=== PATIENT | male | born 1955 | race Caucasian/White ===

== ENCOUNTER 2016-08-12 13:39 | Inpatient (IN) | payer OTHER ==
[~2016-08-12] VITALS: Ht 177.8 cm; Wt 106.6 kg
--- NOTE | 2016-08-12 13:39 | NUR ---
PT BIBA TO BED 6.
[2016-08-12 13:42] VITALS: BP 209/115
--- NOTE | 2016-08-12 13:45 | NUR ---
61M BIBA FROM [facility] C/O VOMITING BLOOD W/ POSSIBLE GI BLEED; PT DENIES ANY MEDICAL HX AT THIS TIME; PER [facility], PT FELL X 4 DAYS AGO, UNABLE TO MOVE S/P FALL; PT UNKNOWN IF LOC AT THE TIME OF FALL; PT A&OX3, PERRLA W/ GARBLED SPEECH; PT C/O VOMITING W/ DIARRHEA; ABDOMEN SOFT, NON-TENDER, ROUND; ACTIVE BOWEL SOUNDS X 4 QUADRANTS; PT NOTED W/ ANASARCA W/ +2 PITTING EDEMA AT THIS TIME; PT NOTED W/ REDNESS TO GROIN AREA, OPEN SKIN TEAR TO LEFT ELBOW, SLIGHT BLEEDING TO SITE AT THIS TIME, DISCOLORATION TO BL KNEES; REDNESS TO RT ARM, BL LEGS; PT C/O SHARP PAIN, NON-RADIATING, 4/10 X 1 MONTH TO LEFT KNEE S/P FALL. PT PLACED ON MONITOR, RESTING IN BED W/ HOB ELEVATED AND IN LOWEST POSITION; POSITIONED FOR COMFORT; ER MD MADE AWARE OF STATUS. WILL CONTINUE TO MONITOR.
[2016-08-12] MEDS ORDERED: NACL 0.9% 1,000 ML IV SCH (13:48)
[2016-08-12] MEDS ORDERED: PANTOPRAZOLE 40 MG INJ VIAL IVP ONE (13:50)
[2016-08-12] MEDS ORDERED: ONDANSETRON 4 MG/2 ML VIAL IVP ONE (13:50)
[2016-08-12] MEDS ORDERED: OCTREOTIDE ACETATE 100 MCG/ML VIAL IV SCH ×2 (13:50→15:20)
--- NOTE | 2016-08-12 14:00 | NUR ---
XRAY AT BEDSIDE.
[2016-08-12 15:10] LABS: HEMATOCRIT 31.4 % (36-52); HEMOGLOBIN 10.3 g/dL (12.0-18.0); MEAN CORPUSCULAR HEMOGLOBIN 29 pg (27-31); MEAN CORPUSCULAR HGB CONC 33 g/dL (33-37); MEAN CORPUSCULAR VOLUME 87 fL (80-94); PLATELET COUNT (AUTO) 332 K/uL (140-450); RED BLOOD CELL COUNT(AUTO) 3.59 MIL/uL (4.20-6.10); RED CELL DISTRIBUTION WIDTH 20.9 % (11.6-13.7)
[2016-08-12] MEDS: OCTREOTIDE ACETATE 1.25 MG in NACL 0.9% 250 ML IV ONE ×2 (15:17→15:19)
[2016-08-12 15:27] LABS: ANION GAP 10.1 (8-16); CALCIUM 7.1 mg/dL (8.5-10.1); CARBON DIOXIDE 26.2 mmol/L (21-32); CREATININE 0.9 mg/dL (0.6-1.3); POTASSIUM 3.3 mmol/L (3.5-5.1)
[2016-08-12 15:28] LABS: NEUTROPHILS % (MANUAL) 82 (43-65)
[2016-08-12 15:29] LABS: ANISOCYTOSIS 1+; BAND % (MANUAL) 10 % (0-8); LYMPHOCYTES % (MANUAL) 4 % (20-46); MONOCYTES % (MANUAL) 4 % (5-12); PLATELET ESTIMATE ADEQUATE
[2016-08-12 15:31] LABS: INR 1.3 (0.8-1.2); PARTIAL THROMBOPLASTIN TIME 30.3 secs (22-35.6); PROTHROMBIN TIME 12.7 secs (10.8-13.4)
[2016-08-12 15:33] LABS: ALBUMIN 1.3 g/dL (3.4-5.0); TOTAL BILIRUBIN 0.9 mg/dL (0.0-1.0)
[2016-08-12 15:48] LABS: CREATINE KINASE MB 0.7 ng/mL (0-3.6)
[2016-08-12] MEDS ORDERED: MORPHINE SULFATE 2 MG/ML SYR IVP PRN (16:00)
[2016-08-12] MEDS ORDERED: LORazepam 1 MG TAB PO PRN (16:00)
[2016-08-12] MEDS ORDERED: ONDANSETRON 4 MG/2 ML VIAL IVP PRN (16:00)
--- NOTE | 2016-08-12 16:14 | NUR ---
US AT BEDSIDE.
[2016-08-12] MEDS ORDERED: cefTRIAXone 1,000 MG VIAL ONE (16:15)
--- NOTE | 2016-08-12 16:19 | NUR ---
CALLED [facility] TO GIVE REPORT TO RN; AZUL CHRISTIAN WILL CALL BACK D/C PT AT THIS TIME.
--- NOTE | 2016-08-12 17:02 | NUR ---
REPORT GIVEN TO JAY AT THIS TIME; PT TO BE TRANSFERRED TO FLOOR AFTER PHOTOS TAKEN.
--- NOTE | 2016-08-12 17:37 | NUR ---
Patient will be admitted to care of DR. SALAZAR. Admited to TELEMETRY. Will go to room 111B. Belongings list completed. Report to AZUL THOMPSON.
[2016-08-12 17:55] VITALS: BP 115/73
--- NOTE | 2016-08-12 17:55 | NUR ---
RECEIVED PATIENT FROM ER. PATIENT AWAKE, ALERT AND ORIENTED. PATIENT ON ROOM AIR. NO SOB NOTED. NO C/O OF PAIN AT THIS TIME. GENERALIZED EDEMA NOTED. 1+ PITTING EDEMA NOTED TO BUE AND BLE. PATIENT PRESENTS WITH GENERALIZED WEAKNESS. PATIENT STATES THAT HE USES A CANE TO AMBULATE AT HOME. IV LINE NOTED TO THE RIGHT HAND AND LEFT CHEST. PATIENT PLACED ON TELE MONITORING. BED LOWERED WITH CALL LIGHT WITHIN REACH. WILL CONTINUE TO MONITOR
--- NOTE | 2016-08-12 18:00 | NUR ---
PATIENT HAD A BM. STOOL BLACK AND LOOSE. PATIENT GIVEN PERINEAL CARE. REDNESS TO THE GROIN AND DISCOLORATION TO BLE NOTED
--- NOTE | 2016-08-12 19:16 | NUR ---
PATIENT REPORT GIVEN AT BEDSIDE. PATIENT ENDORSED IN STABLE CONDITION
--- NOTE | 2016-08-12 19:30 | NUR ---
RECEIVED FROM AM RN IN BED SUPINE POSITION AWAKE AND ALERT. ABLE TO VERBALIZE NEEDS. IVF SITE TO LEFT CHEST AND RIGHT HAND INTACT. GOOD BLOOD RETURN. REMINDED NPO . DX. OF GI BLEED. RE-ORIENTED TO CALL LIGHT USE AND RAPID RESPONSE ALARM. PT. BED ALARM ON RT GENERALIZED WEAKNESS. ANASARCA/WEEPING NOTED. DENIES PAIN AT THIS TIME. TELEMETRY MONITORING.
[2016-08-12 20:16] VITALS: BP 105/50
--- NOTE | 2016-08-12 20:28 | NUR ---
PT. CLEANED UP BY FRAME PULLEY MORTISING MACHINE OPERATOR AND WITH SOFT STOOL WITH BLOOD NOTED. DX. GI BLEED. KEPT CLEAN AND WARM.
[2016-08-12] MEDS: PANTOPRAZOLE 80 MG in NACL 0.9% 100 ML IVP SCH (20:38)
--- NOTE | 2016-08-12 22:00 | NUR ---
PT. STILL AWAKE AT THIS TIME. REQUESTING FOR FOOD. REMINDED THAT HE IS NPO PER MD. DX. GI BLEED. NO SOB. TELEMETRY MONITORING. CALL LIGHT WITH IN REACH.
--- NOTE | 2016-08-13 | NUR ---
PT. REQUESTING FOR FOOD. INFORMED HIM HE IS NPO. PT. DX. GI BLEED. CLEANED BY CNAS RT WITH BM. NOTED WITH SPECK OF BLOOD IN IT. NO SOB. TELEMETRY MONITORING.
[2016-08-13] MEDS ORDERED: MILD SOAP AND WATER TP PRN (00:05)
[2016-08-13] MEDS ORDERED: HYDRAGUARD CREAM TP PRN (00:05)
[2016-08-13 00:45] VITALS: BP 121/79
[2016-08-13] MEDS: HYDRAGUARD CREAM TP SCH ×2 (01:00→13:00)
[2016-08-13] MEDS: MILD SOAP AND WATER TP SCH ×2 (01:09→13:00)
--- NOTE | 2016-08-13 02:00 | NUR ---
SLEEPING WELL. NO SOB. NO RESTLESSNESS NOTED. CALL LIGHT WITH IN REACH. ABLE TO USE CALL LIGHT FOR HELP. ON TELEMETRY MONITORING.
--- NOTE | 2016-08-13 04:00 | NUR ---
SLEEPING. TURNED BY CNAS. PILLOW SUPPORT TO PRESSURE AREAS. TELEMETRY MONITORING. BOTH IVF SITES INTACT AND WITH GOOD BLOOD RETURN.
[2016-08-13 04:06] VITALS: BP 115/78
--- NOTE | 2016-08-13 06:21 | NUR ---
PT. SLEEPING. NO SOB. NO RESTLESSNESS NOTED. TELEMETRY MONITORING. TURNED Q 2H. TOTAL CARE AT THIS TIME RT GENERALIZED WEAKNESS.
--- NOTE | 2016-08-13 07:29 | NUR ---
PT. HAD 3 SOFT BM THIS SHIFT. ENDORSED TO THE NEXT RN FOR CONTINUITY OF CARE. NO SOB. NO RESTLESSNESS NOTED. TELEMETRY MONITORING. TOTAL CARE FOR NOW RT WEAKNESS.
--- NOTE | 2016-08-13 07:30 | NUR ---
PT AWAKE AND ALERT, NO SIGNS OF ACUTE DISTRESS, BREATHING EVEN AND UNLABORED BILATERALLY. ABDOMEN SOFT NON-TENDER WITH BOWEL SOUNDS ACTIVE IN ALL 4 QUADRANTS, BEDREST, IV PATENT WITH NO REDNESS, SKIN INTACT WITH PITTING WEEPING EDEMA TO BILATERAL UPPER AND LOWER EXTREMITIES AND REDNESS TO COCCYX AND PERINEAL AREA, RE-ORIENTED PT TO UNIT AND HOSPITAL PT VERBALIZED UNDERSTANDING. BED IN LOW POSITION WITH BILATERAL HALF SIDE RAILS UP, CALL LIGHT WITHIN REACH.
[2016-08-13 08:00] VITALS: BP 114/72
[2016-08-13] MEDS: PANTOPRAZOLE 80 MG in NACL 0.9% 100 ML IVP SCH (08:07)
[2016-08-13] MEDS: MULTIVITAMIN 1 TAB PO SCH (09:00)
[2016-08-13] MEDS: THIAMINE 100 MG TAB PO SCH (09:00)
[2016-08-13] MEDS: FOLIC ACID 1 MG TAB PO SCH (09:00)
--- NOTE | 2016-08-13 09:06 | NUR ---
PATIENT HAS BEEN SCREENED AND CATEGORIZED MODERATE NUTRITION RISK. PATIENT WILL BE SEEN WITHIN 3-5 DAYS OF ADMISSION. 08/15/16-08/17/[address]
[2016-08-13] MEDS ORDERED: ALBUMIN HUMAN 25% 50 ML IV SCH (10:14)
--- NOTE | 2016-08-13 10:25 | NUR ---
LAB CALLED, UNSUCCESSFUL WITH BLOOD DRAW FOR BLOOD CULTURES, WOULD LIKE TO KNOW IF DR SALAZAR STILL WANTS NEW BLOOD CULTURES DRAWN. SPOKE WITH DR SALAZAR, CONFIRMED YES HE WANTS BLOOD CULTURES DRAWN.
--- NOTE | 2016-08-13 10:30 | NUR ---
SPOKE WITH DR SALAZAR REGARDING NEED FOR CENTRAL LINE OR PICC LINE DUT TO INABILITY TO INSERT IV AND DRAW BLOOD AND MULTIPLE IV MEDICATION AND LAB ORDERS. PER DR SALAZAR OKAY TO INSERT PICC LINE.
--- NOTE | 2016-08-13 10:45 | NUR ---
PATIENT EDUCATED REGARDING NEED FOR PICC LINE, CONSENT FORM SIGNED AND PICC NURSE CALLED. PICC NURSE WILL CALL ME BACK WITH ESTIMATED TIME OF ARRIVAL.
--- NOTE | 2016-08-13 10:53 | NUR ---
CALLED LAB AND INFORMED DR SALAZAR DOES WANT BLOOD CULTURES DRAWN.
--- NOTE | 2016-08-13 11:15 | NUR ---
FAXED INITIAL REVIEW TO [facility] [phone] PHONE AUGUST [phone]
--- NOTE | 2016-08-13 11:32 | NUR ---
RECEIVED CALL FROM KEMAL PICC LINE NURSE, WILL BE HERE AT 1300 TO INSERT PICC.
[2016-08-13 11:47] VITALS: BP 132/74
--- NOTE | 2016-08-13 12:11 | NUR ---
CANNOT GET A NEW IV LINE IN PATIENT DUE TO SWELLING, UNABLE TO ADMINISTER ALBUMIN AT THIS TIME. PICC NURSE COMING IN AROUND 1300., AWARE.
[2016-08-13 12:14] LABS: HEMOGLOBIN 9.4 g/dL (12.0-18.0); MEAN CORPUSCULAR HEMOGLOBIN 28 pg (27-31); MEAN CORPUSCULAR HGB CONC 32 g/dL (33-37); MEAN CORPUSCULAR VOLUME 88 fL (80-94); PLATELET COUNT (AUTO) 265 K/uL (140-450); RED BLOOD CELL COUNT(AUTO) 3.32 MIL/uL (4.20-6.10); RED CELL DISTRIBUTION WIDTH 21.4 % (11.6-13.7); WHITE BLOOD COUNT (AUTO) 11.9 K/uL (4.8-10.8)
[2016-08-13 12:34] LABS: BAND % (MANUAL) 13 % (0-8); LYMPHOCYTES % (MANUAL) 7 % (20-46); MONOCYTES % (MANUAL) 4 % (5-12); NEUTROPHILS % (MANUAL) 76 (43-65)
[2016-08-13 12:35] LABS: ANISOCYTOSIS 1+; OVALOCYTES 1+; POIKILOCYTOSIS 1+
[2016-08-13] MEDS ORDERED: POTASSIUM CHLORIDE 20% 40 MEQ/15 ML UDC GT SCH (13:00)
--- NOTE | 2016-08-13 13:00 | NUR ---
WAS SEEN BY DR LANDAVERDE, NEW ORDERS RECEIVED WILL CARRY OUT.
[2016-08-13 13:17] LABS: ALBUMIN 1.2 g/dL (3.4-5.0); MAGNESIUM 1.4 mg/dL (1.8-2.4); TOTAL BILIRUBIN 0.7 mg/dL (0.0-1.0); TOTAL PROTEIN, SERUM 5.6 g/dL (6.4-8.2)
[2016-08-13 13:23] LABS: ANION GAP 13.7 (8-16); CALCIUM 7.5 mg/dL (8.5-10.1); CARBON DIOXIDE 24.6 mmol/L (21-32); POTASSIUM 4.3 mmol/L (3.5-5.1)
[2016-08-13 13:24] LABS: CREATININE 1.1 mg/dL (0.6-1.3)
--- NOTE | 2016-08-13 13:25 | NUR ---
PICC NURSE ARRIVED, BEGAN PICC INSERTION.
--- NOTE | 2016-08-13 13:50 | NUR ---
PICC NURSE FINISHED INSERTION, WILL GET CHEST XRAY TO CONFIRM PLACEMENT.
[2016-08-13] MEDS ORDERED: FUROSEMIDE 20 MG/2 ML VIAL IVP SCH (14:00)
--- NOTE | 2016-08-13 14:09 | NUR ---
SPOKE WITH DR. SALAZAR, REPORTED XRAY RESULT FOR PICC PLACEMENT. RECEIVED ORDER, OK TO USE PICC LINE. NOTED AND CARRIED OUT.
[2016-08-13 16:00] VITALS: BP 107/73
--- NOTE | 2016-08-13 17:36 | NUR ---
PAGED DR CAREY REGARDING DIET ORDER DUE TO EGD PATIENT IS TO HAVE TOMORROW WITH DR LANDAVERDE.
--- NOTE | 2016-08-13 17:40 | NUR ---
PER DR CAREY, NPO AFTER MIDNIGHT FOR EGD TOMORROW, 08/14/16. WILL CARRY OUT.
--- NOTE | 2016-08-13 18:41 | NUR ---
RECEIVED NEW ORDER FOR SCD'S FROM DR LANDAVERDE, CALLED HOMICIDE SQUAD SERGEANT TO ORDER AND CARRY OUT.
--- NOTE | 2016-08-13 19:17 | NUR ---
PT AWAKE AND ALERT, NO SIGNS OF ACUTE DISTRESS. GAVE REPORT TO AZUL WILKINS, POLYSOMNOGRAPH TECH NURSE FOR CONTINUITY OF CARE.
--- NOTE | 2016-08-13 19:26 | NUR ---
RECEIVED FROM AM RN IN BED SUPINE POSITION AWAKE AND ALERT. ABLE TO VERBALIZE NEEDS. IVF SITE TO LEFT SUBCLAVIAN INTACT. GOOD BLOOD RETURN. REMINDED NPO AT MIDNIGHT RT PROCEDURE/EGD TOMORROW. CONSENT SIGNED."OK" . DX. OF GI BLEED. RE-ORIENTED TO CALL LIGHT USE AND RAPID RESPONSE ALARM. PT. BED ALARM ON RT GENERALIZED WEAKNESS. ANASARCA/WEEPING NOTED. DENIES PAIN AT THIS TIME. TELEMETRY MONITORING. NEW PICC LINE INSERTED TO LEFT UPPER CHEST WITH DOUBLE LUMEN. FLUSHED WITH NS AT THIS TIME. PATENT. DENIES PAIN AT THIS TIME.
[2016-08-13 19:55] VITALS: BP 129/84
[2016-08-13 20:00] LABS: HEMATOCRIT 28.4 % (36-52); HEMOGLOBIN 9.1 g/dL (12.0-18.0)
[2016-08-13] MEDS: LACTULOSE 20 GM/30 ML UDC PO SCH (20:04)
[2016-08-13] MEDS: MAGNESIUM OXIDE 400 MG TAB PO SCH (20:05)
[2016-08-13] MEDS: SPIRONOLACTONE 50 MG TAB PO SCH (20:05)
--- NOTE | 2016-08-13 20:14 | NUR ---
PT. ABLE TO TOLERATE ALL P.O. MEDICATIONS. DENIES PAIN AT THIS TIME. NO SOB. REMINDED AGAIN THAT HE IS NPO AT MIDNIGHT ORDERED BY MD LANDAVERDE/GI SPECIALIST. "OK" TELEMETRY MONITORING. CALL LIGHT WITH IN REACH. BLOOD SPECIMEN FOR H AND H TAKEN VIA PICC LINE. TOLERATED WELL. FLUSHED EACH PORT WITH NS 10 ML.
[2016-08-13] MEDS ORDERED: AMITRIPTYLINE 10 MG TAB PO SCH (21:00)
[2016-08-14] VITALS: BP 114/74
[2016-08-14] MEDS: HYDRAGUARD CREAM TP SCH ×2 (01:31→12:26)
[2016-08-14] MEDS: MILD SOAP AND WATER TP SCH ×2 (01:31→12:26)
--- NOTE | 2016-08-14 01:31 | NUR ---
PT. SLEEPING AT THIS TIME. NO RESTLESSNESS NOTED. TELEMETRY MONITORING.
[2016-08-14 04:00] VITALS: BP 123/56
--- NOTE | 2016-08-14 04:52 | NUR ---
PT. BEEN TURNED Q 2H. KEPT DRY AND COMFORTABLE. TELEMETRY MONITORING. PT. ABLE TO USE CALL LIGHT FOR HELP. NPO STATUS SINCE MIDNIGHT ORDERED BY MD LANDAVERDE.
[2016-08-14 06:53] LABS: HEMOGLOBIN 8.8 g/dL (12.0-18.0)
[2016-08-14 07:02] LABS: ALBUMIN 1.4 g/dL (3.4-5.0); ANION GAP 9.7 (8-16); CALCIUM 7.3 mg/dL (8.5-10.1); CARBON DIOXIDE 26.9 mmol/L (21-32); CREATININE 1.1 mg/dL (0.6-1.3); POTASSIUM 3.6 mmol/L (3.5-5.1); TOTAL BILIRUBIN 0.5 mg/dL (0.0-1.0); TOTAL PROTEIN, SERUM 5.6 g/dL (6.4-8.2)
[2016-08-14 07:06] LABS: HEMATOCRIT 26.5 % (36-52); MEAN CORPUSCULAR HEMOGLOBIN 29 pg (27-31); MEAN CORPUSCULAR HGB CONC 33 g/dL (33-37); MEAN CORPUSCULAR VOLUME 88 fL (80-94); PLATELET COUNT (AUTO) 278 K/uL (140-450); RED BLOOD CELL COUNT(AUTO) 3.02 MIL/uL (4.20-6.10); RED CELL DISTRIBUTION WIDTH 20.6 % (11.6-13.7); WHITE BLOOD COUNT (AUTO) 7.9 K/uL (4.8-10.8)
--- NOTE | 2016-08-14 07:29 | NUR ---
ENDORSED TO THE NEXT RN SLEEPING BUT WAKES UP EASILY WHEN CALLED BY NAME. ENDORSED TO THE NEXT RN FOR CONTINUITY OF CARE. AWAKE AND ALERT. NO COMPLAINTS DONE. TELEMETRY MONITORING.
--- NOTE | 2016-08-14 07:30 | NUR ---
RECEIVED REPORT FROM FORMS BUILDER NURSE AT BEDSIDE. UPDATED THE BOARD. PT IS SLEEPING. PT HAS WEEPING EDEMA ON L ARM, CHANGED THE TOWEL, AND BL LE PITTING EDEMA. PT HAS INCONTINENT DERMATITIS ON SACRAL AREA. PT HAS PICC 2 PORTS ON L UPPER ARM. PT HAS SCDS ON. VS WNL. PT IS SLEEPING. CALL LIGHT WITHIN REACH. WILL CONTINUE TO MONITOR.
[2016-08-14 07:35] LABS: ANISOCYTOSIS 1+; BASOPHILS % (MANUAL) 1 % (0-2); EOSINOPHILS % (MANUAL) 3 % (0-4); LYMPHOCYTES % (MANUAL) 15 % (20-46); MONOCYTES % (MANUAL) 9 % (5-12); NEUTROPHILS % (MANUAL) 72 (43-65); PLATELET ESTIMATE ADEQUATE
[2016-08-14 08:00] VITALS: BP 119/76
[2016-08-14] MEDS ORDERED: THIAMINE 100 MG TAB PO SCH (09:00)
--- NOTE | 2016-08-14 09:00 | NUR ---
PT VOIDED AND HAD BM IN BED. CLEANED AND CHANGED PT. PT TOLERATED WELL. WILL CONTINUE TO MONITOR. Addendum: 08/14/16 at 1735 by Rocio Morrissey RN BM WAS BLOODY.
[2016-08-14] MEDS ORDERED: diphenhydrAMINE 50 MG/ML VIAL ONE (09:12)
[2016-08-14] MEDS ORDERED: fentaNYL 0.05 MG/ML VIAL ONE (09:12)
[2016-08-14] MEDS ORDERED: MIDAZOLAM 2 MG/2 ML VIAL ONE (09:12)
[2016-08-14] MEDS: LACTULOSE 20 GM/30 ML UDC PO SCH ×2 (09:13→21:01)
[2016-08-14] MEDS: MAGNESIUM OXIDE 400 MG TAB PO SCH ×2 (09:14→21:02)
[2016-08-14] MEDS: SPIRONOLACTONE 50 MG TAB PO SCH ×2 (09:14→21:02)
[2016-08-14] MEDS: FOLIC ACID 1 MG TAB PO SCH (09:14)
[2016-08-14] MEDS: PANTOPRAZOLE 40 MG INJ VIAL IVP SCH (09:14)
[2016-08-14] MEDS: THIAMINE 100 MG TAB PO SCH (09:14)
[2016-08-14] MEDS: MULTIVITAMIN 1 TAB PO SCH (09:14)
[2016-08-14] MEDS: FUROSEMIDE 20 MG/2 ML VIAL IVP SCH (09:15)
--- NOTE | 2016-08-14 09:20 | NUR ---
OR NURSES HERE TO TRANSPORT PT TO OR FOR EGD. PT IN STABLE CONDITION.
[2016-08-14] MEDS ORDERED: Z-GUARD PASTE TP ONE (09:25)
--- NOTE | 2016-08-14 10:28 | NUR ---
PT CAME BACK TO UNIT WITH 2 OR NURSES. OR NURSE REPORTED PROCEDURE WENT WELL, PT VS WNL, ESOPHAGITIS IS THE DIAGNOSIS. CALL LIGHT WITHIN REACH. WILL CONTINUE TO MONITOR.
[2016-08-14] MEDS ORDERED: MIDAZOLAM 2 MG/2 ML VIAL IV ONE (11:05)
[2016-08-14] MEDS ORDERED: fentaNYL 0.05 MG/ML VIAL IVP ONE (11:05)
[2016-08-14] MEDS ORDERED: diphenhydrAMINE 50 MG/ML VIAL IVP ONE (11:05)
[2016-08-14 12:00] VITALS: BP 130/82
[2016-08-14] MEDS: FERROUS SULFATE 325 MG TABEC PO SCH ×2 (12:19→16:18)
--- NOTE | 2016-08-14 12:20 | NUR ---
PT IS SITTING UP IN BED AND EATING LUNCH. APPETITE GOOD.
--- NOTE | 2016-08-14 14:38 | NUR ---
PT IS SLEEPING IN BED. NO DISTRESS NOTED. CALL LIGHT WITHIN REACH. WILL CONTINUE TO MONITOR.
[2016-08-14 16:00] VITALS: BP 140/77
--- NOTE | 2016-08-14 16:00 | NUR ---
PT HAD A LOOSE BM. CLEANED AND CHANGED PT, APPLIED Z-GUARD. PT TOLERATED WELL. CALL LIGHT WITHIN REACH. WILL CONTINUE TO MONITOR. Addendum: 08/14/16 at 1735 by Rocio Morrissey RN NO VISIBLE BLOOD IN BM.
[2016-08-14] MEDS: Z-GUARD PASTE TP PRN (16:16)
--- NOTE | 2016-08-14 18:30 | NUR ---
PT HAD A LOOSE BM WITH BLOODY MUCUS. PAGED DR. Katrin LANDAVERDE.
--- NOTE | 2016-08-14 18:50 | NUR ---
PAGED DR. Katrin LANDAVERDE REGARDING PT'S BLOODY MUCUS IN STOOL.
--- NOTE | 2016-08-14 19:29 | NUR ---
GAVE REPORT TO CHARGE NURSE OF LINE CREWMAN. PT IN STABLE CONDITION.
[2016-08-14 20:00] VITALS: BP 150/90
--- NOTE | 2016-08-14 20:10 | NUR ---
RECEIVED FROM CHARGE NURSE REPORT SLEEPING . NO SOB. NO RESTLESSNESS NOTED. CALL LIGHT WITH IN REACH.WAKES UP EASILY WHEN TOUCHED. ABLE TO VERBALIZE NEEDS WELL. ASSISTED WITH ACTIVITIES AT THIS TIME RT AFFLICTION. PICC LINE TO LEFT UPPER ARM INTACT AND NO INFILTRATION. TELEMETRY MONITORING. CARE PLANS FOR THE SHIFT DISCUSSED WITH HIM.
[2016-08-14] MEDS: AMITRIPTYLINE 10 MG TAB PO SCH (21:06)
--- NOTE | 2016-08-14 21:36 | NUR ---
SLEEPING AT THIS TIME. CALL LIGHT WITH IN REACH.
--- NOTE | 2016-08-15 00:13 | NUR ---
SLEEPING AT THIS TIME. CALL LIGHT WITH IN REACH. NO RESTLESSNESS. TURNED TO SIDES Q 2H BY CNAS. NO COMPLAINTS DONE.
[2016-08-15 00:54] VITALS: BP 140/86
[2016-08-15] MEDS: MILD SOAP AND WATER TP SCH ×2 (01:00→13:29)
[2016-08-15] MEDS: HYDRAGUARD CREAM TP SCH ×2 (01:00→13:28)
--- NOTE | 2016-08-15 03:47 | NUR ---
PT. CHECKED. SLEEPING. NO RESTLESSNESS. CALL LIGHT AT BEDSIDE. TELEMETRY MONITORING. PT. TURNED TO SIDES Q 2H.
[2016-08-15 05:07] VITALS: BP 138/78
[2016-08-15 06:53] LABS: HEMATOCRIT 27.4 % (36-52); MEAN CORPUSCULAR HEMOGLOBIN 29 pg (27-31); MEAN CORPUSCULAR HGB CONC 33 g/dL (33-37); MEAN CORPUSCULAR VOLUME 89 fL (80-94); PLATELET COUNT (AUTO) 236 K/uL (140-450); RED BLOOD CELL COUNT(AUTO) 3.09 MIL/uL (4.20-6.10); RED CELL DISTRIBUTION WIDTH 20.9 % (11.6-13.7); WHITE BLOOD COUNT (AUTO) 7.4 K/uL (4.8-10.8)
--- NOTE | 2016-08-15 07:00 | NUR ---
ENDORSED TO THE NEXT RN FOR CONTINUITY OF CARE. A/O X 4. VERBALIZES WELL. NO SOB. NEEDS MET. ASSISTED WITH ADLS.
[2016-08-15 07:11] LABS: ANION GAP 8.6 (8-16); CALCIUM 7.1 mg/dL (8.5-10.1); CARBON DIOXIDE 28.7 mmol/L (21-32); CREATININE 0.9 mg/dL (0.6-1.3); POTASSIUM 3.3 mmol/L (3.5-5.1)
--- NOTE | 2016-08-15 07:18 | NUR ---
RECEIVED PT REPORT FROM PAVING BLOCK CUTTER NURSE AT BEDSIDE. INTRODUCED OURSELVES AND UPDATED THE BOARD. PT IS ALERT AWAKE AND ORIENTED. VS WNL. BL EDEMA IN UPPER AND LOWER EXTREMITIES. SCDS ON PT. PT HAS PICC LINE ON L UPPER ARM, SITE INTACT. REPOSITIONED AND PULLED PT UP IN BED. PT IS EATING BREAKFAST. TOLERATING WELL. CALL LIGHT WITHIN REACH. WILL CONTINUE TO MONITOR.
[2016-08-15 08:00] VITALS: BP 132/57
[2016-08-15 08:14] LABS: ANISOCYTOSIS 1+; BAND % (MANUAL) 2 % (0-8); BASOPHILS % (MANUAL) 0 % (0-2); EOSINOPHILS % (MANUAL) 4 % (0-4); LYMPHOCYTES % (MANUAL) 20 % (20-46); MONOCYTES % (MANUAL) 10 % (5-12); NEUTROPHILS % (MANUAL) 64 (43-65); PLATELET ESTIMATE ADEQUATE
--- NOTE | 2016-08-15 08:15 | NUR ---
PT HAD A LOOSE BLOODY BM. CLEANED AND CHANGED PT. REPOSITIONED PT. PT TOLERATED WELL. CALL LIGHT WITHIN REACH. WILL CONTINUE TO MONITOR.
[2016-08-15] MEDS: FERROUS SULFATE 325 MG TABEC PO SCH ×3 (08:52→17:11)
[2016-08-15] MEDS: MULTIVITAMIN 1 TAB PO SCH (08:53)
[2016-08-15] MEDS: PANTOPRAZOLE 40 MG INJ VIAL IVP SCH (08:53)
[2016-08-15] MEDS: FOLIC ACID 1 MG TAB PO SCH (08:53)
[2016-08-15] MEDS: FUROSEMIDE 20 MG/2 ML VIAL IVP SCH (08:53)
[2016-08-15] MEDS: LACTULOSE 20 GM/30 ML UDC PO SCH (08:53)
[2016-08-15] MEDS: MAGNESIUM OXIDE 400 MG TAB PO SCH ×2 (08:54→21:00)
[2016-08-15] MEDS: SPIRONOLACTONE 50 MG TAB PO SCH ×2 (08:54→20:59)
[2016-08-15] MEDS: THIAMINE 100 MG TAB PO SCH (08:54)
--- NOTE | 2016-08-15 09:10 | NUR ---
PT HAD A LOOSE BM. CLEANED AND CHANGED PT. TOLERATED WELL. WILL CONTINUE TO MONITOR.
--- NOTE | 2016-08-15 09:15 | NUR ---
DR. SALAZAR EXAMINED PT AND ORDERED K-DUR FOR PT'S LOW K LEVEL.
[2016-08-15] MEDS ORDERED: POTASSIUM CHLORIDE 10 MEQ TABER PO SCH (10:00)
--- NOTE | 2016-08-15 10:10 | NUR ---
HELPED PT USE URINAL IN BED. PT TOLERATED WELL. WILL CONTINUE TO MONITOR.
[2016-08-15] MEDS: Z-GUARD PASTE TP PRN (10:40)
--- NOTE | 2016-08-15 10:45 | NUR ---
PAGED DR. Katrin LANDAVERDE REGARDING PT'S BLOODY STOOL.
--- NOTE | 2016-08-15 11:45 | NUR ---
DR. Katrin LANDAVERDE CALLED AND ORDERED TO DISCONTINUE LACTULOSE AND HE WILL PERFORM COLONOSCOPY ON TUESDAY IF PT IS STILL IN HOSPITAL, IF NOT, HE WILL ORDER COLONOSCOPY OUTPATIENT.
[2016-08-15 12:00] VITALS: BP 132/57
--- NOTE | 2016-08-15 12:00 | NUR ---
PT USED URINAL AND ALSO VOIDED A SMALL AMOUNT IN BED. CLEANED AND CHANGED PT. PT TOLERATED WELL. CALL LIGHT WITHIN REACH. WILL CONTINUE TO MONITOR.
--- NOTE | 2016-08-15 14:00 | NUR ---
SPOKE TO DR. SALAZAR REGARDING DR. Katrin LANDAVERDE'S PLAN FOR PT. DR. SALAZAR AWARE.
[2016-08-15] MEDS ORDERED: ELA10 PO (14:10)
[2016-08-15] MEDS ORDERED: SPIR50TA PO (14:10)
[2016-08-15] MEDS ORDERED: FERR-18 PO (14:10)
[2016-08-15] MEDS ORDERED: THIA-8 PO (14:10)
[2016-08-15] MEDS ORDERED: FURO-570 PO (14:10)
[2016-08-15] MEDS ORDERED: FOLI1TAB90 PO (14:10)
[2016-08-15] MEDS ORDERED: LACT10SO11 PO (14:10)
[2016-08-15] MEDS ORDERED: ONDA2SOL45 IVP (14:10)
[2016-08-15] MEDS ORDERED: MAG400 PO (14:10)
[2016-08-15] MEDS ORDERED: MULT-405 PO (14:10)
[2016-08-15] MEDS ORDERED: PANT40EC PO (14:11)
[2016-08-15] MEDS ORDERED: CIPR500P4 PO (14:12)
[2016-08-15 16:00] VITALS: BP 126/79
--- NOTE | 2016-08-15 16:22 | NUR ---
FAXED PATIENT INFO TO BALJINDER AT [facility]. MARIE FROM [place]- NO BED [facility]- NO BED [facility], WAITING FOR BED.
--- NOTE | 2016-08-15 16:40 | NUR ---
PT HAD A LARGE LOOSE BM WITH URINE IN BED. CLEANED AND CHANGED PT. PT TOLERATED WELL. WILL CONTINUE TO MONITOR.
--- NOTE | 2016-08-15 18:00 | NUR ---
PT ATE 100% OF HIS DINNER. PT HAS NO COMPLAINTS AT THIS TIME. WILL CONTINUE TO MONITOR.
--- NOTE | 2016-08-15 19:10 | NUR ---
ENDORSED PT TO THE VACUUM DRUM DRIER OPERATOR NURSE AT BEDSIDE FOR CONTINUITY OF CARE. PT IS IN STABLE CONDITION.
--- NOTE | 2016-08-15 19:15 | NUR ---
RECEIVED PT IN STABLE CONDITION FROM AM NURSE. AAO X4. HAS PICC LINE LT UPPER MPT IS ON TELE MONITOR. BEDREST. WITH NO ACUTE DISTRESS NOTED. HAS PICC LINE ON LT UPPER ARM ND HL ON LT SIDE SHOULDER. POAN OF CARE DISCUSSED AND VERBALIZED UNDERSTANDING. BED ON LOW POSITION . SIDE RAILS UP X2. CALL LIGHT PLACED WITHIN EASY REACH. INSTRUCTED TO CALL FOR ASSISTANCE. WILL CONTINUE TO MONITOR.
[2016-08-15] MEDS: AMITRIPTYLINE 10 MG TAB PO SCH (21:00)
[2016-08-15 21:12] VITALS: BP 114/78
--- NOTE | 2016-08-15 21:30 | NUR ---
HAD A MODERATE LOOSE BOWEL MOVEMENT WITH NO BLOOD NOTED. CLEANSED AND KEPT DRY, APPLIED Z GUARD TO PERINEAL AREA REDNESS.
--- NOTE | 2016-08-15 22:30 | NUR ---
TRIED TO COLLECT URINE SPECIMEN FOR UA AND URINE CULTURE. VOIDED BUT WITH SOME MIXED WITH STOOL . WILL TRY TO COLLECT AGAIN LATER.
[2016-08-16 00:31] VITALS: BP 108/69
[2016-08-16] MEDS: HYDRAGUARD CREAM TP SCH ×2 (01:25→13:40)
[2016-08-16] MEDS: MILD SOAP AND WATER TP SCH ×2 (01:26→13:41)
--- NOTE | 2016-08-16 02:00 | NUR ---
HAS BEEN REPOSITIONED /TURNED TO SIDES FOR COMFORT. NO C/O ANY PAIN NOTED. WILL CONTINUE TO MONITOR.
[2016-08-16 04:00] VITALS: BP 117/64
--- NOTE | 2016-08-16 04:15 | NUR ---
PT HAD ANOTHER LOOSE BM, NO BLOOD NOTED. REPOSITIONED FOR COMFORT AFTER BEEN CLEANSED .
--- NOTE | 2016-08-16 07:35 | NUR ---
ENDORSED PT IN STABLE CONDITION TO AM NURSE.
--- NOTE | 2016-08-16 07:40 | NUR ---
RECEIVED REPORT FROM AZUL JERONIMO. PT IS RESTING IN BED, A/OX4, PT IS ON BEDREST, PT HAS PICC LINE ON LT UPPER ARM, X2 LUMEN, IV ON THE LT SHOULDER, SL, THERE IS EDEMA NOTED THE LEFT ARM, THERE IS LEFT ARM WEAKNESS, PT HAS INCONTINENT DERMATITIS TO JORDAN AREA, THERE ARE NO S/S OF RESPIRATORY DISTRESS OR DISCOMFORT NOTED, SAFETY/FALL PRECAUTIONS ARE IN PLACE DISCUSSED PLAN OF CARE WITH PT, PT VERBALIZED UNDERSTANDING, CALL LIGHT IS WITHIN REACH, WILL CONTINUE TO MONITOR.
[2016-08-16 08:00] VITALS: BP 102/67
[2016-08-16] MEDS ORDERED: FUROSEMIDE 40 MG TAB PO SCH (09:03)
[2016-08-16] MEDS ORDERED: CIPROFLOXACIN 250 MG TAB PO SCH (09:04)
[2016-08-16] MEDS: FERROUS SULFATE 325 MG TABEC PO SCH ×3 (09:07→17:44)
[2016-08-16] MEDS: MAGNESIUM OXIDE 400 MG TAB PO SCH ×2 (09:08→21:03)
[2016-08-16] MEDS: FOLIC ACID 1 MG TAB PO SCH (09:08)
[2016-08-16] MEDS: MULTIVITAMIN 1 TAB PO SCH (09:08)
[2016-08-16] MEDS: THIAMINE 100 MG TAB PO SCH (09:08)
[2016-08-16] MEDS: SPIRONOLACTONE 50 MG TAB PO SCH ×2 (09:09→21:02)
[2016-08-16] MEDS: PANTOPRAZOLE 40 MG INJ VIAL IVP SCH (09:09)
--- NOTE | 2016-08-16 09:11 | NUR ---
DUE MEDICATIONS GIVEN, LASIX AND SPIRONOLACTONE HELD, BP 95/64, HR 89.
--- NOTE | 2016-08-16 09:33 | NUR ---
INFORMED PT THERE WAS A NEW MEDICATION ORDERED TO BE GIVEN RIGHT NOW, I LET HIM KNOW IT WAS AN ANTI BIOTIC, PT STATED, "I ALREADY TOOK ALL THE PILLS I NEEDED TO TAKE, I DON'T NEED ANYMORE," PT REFUSED MEDICATION.
--- NOTE | 2016-08-16 10:30 | NUR ---
PT HAD A LOOSE BOWEL MOVEMENT, PT WAS CLEANED, BED LINENS WERE CHANGED, ALL NEEDS ARE MET AT THIS TIME, CALL LIGHT WITHIN REACH, WILL CONTINUE TO MONITOR.
[2016-08-16 10:34] LABS: BASOPHILS % (AUTO) 0.5 % (0.0-2.0); EOSINOPHILS # (AUTO) 0.1 K/uL (0-0.4); EOSINOPHILS % (AUTO) 1.3 % (0.0-4.0); HEMATOCRIT 27.1 % (36-52); HEMOGLOBIN 8.7 g/dL (12.0-18.0); LYMPHOCYTES # (AUTO) 1.1 K/uL (2.0-11.5); LYMPHOCYTES % (AUTO) 13.2 % (20.5-51.1); MEAN CORPUSCULAR HEMOGLOBIN 29 pg (27-31); MEAN CORPUSCULAR HGB CONC 32 g/dL (33-37); MEAN CORPUSCULAR VOLUME 88 fL (80-94); MONOCYTES # (AUTO) 0.9 K/uL (0.8-1.0); MONOCYTES % (AUTO) 10.9 % (1.7-9.3); NEUTROPHILS # (AUTO) 6.3 K/uL (1.8-7.7); NEUTROPHILS % (AUTO) 74.1 % (42.2-75.2); PLATELET COUNT (AUTO) 200 K/uL (140-450); RED BLOOD CELL COUNT(AUTO) 3.07 MIL/uL (4.20-6.10); RED CELL DISTRIBUTION WIDTH 20.9 % (11.6-13.7); WHITE BLOOD COUNT (AUTO) 8.4 K/uL (4.8-10.8)
[2016-08-16 10:53] LABS: ALBUMIN 1.2 g/dL (3.4-5.0); ANION GAP 8.2 (8-16); CALCIUM 6.8 mg/dL (8.5-10.1); CARBON DIOXIDE 28.6 mmol/L (21-32); CREATININE 0.9 mg/dL (0.6-1.3); POTASSIUM 3.8 mmol/L (3.5-5.1); TOTAL BILIRUBIN 0.3 mg/dL (0.0-1.0); TOTAL PROTEIN, SERUM 5.4 g/dL (6.4-8.2)
[2016-08-16 12:00] VITALS: BP 118/71
--- NOTE | 2016-08-16 12:30 | NUR ---
PT IS SLEEPING IN BED AT THIS TIME, CALL LIGHT WITHIN REACH.
--- NOTE | 2016-08-16 14:30 | NUR ---
PT RESTING IN BED, WATCHING TV, NO S/S OF RESPIRATORY DISTRESS OR DISCOMFORT NOTED, CALL LIGHT IS WITHIN REACH.
[2016-08-16 16:00] VITALS: BP 102/70
--- NOTE | 2016-08-16 16:30 | NUR ---
PT SLEEPING IN BED AT THIS TIME.
--- NOTE | 2016-08-16 18:15 | NUR ---
PT SITTING IN BED, EATING DINNER, CALL LIGHT WITHIN REACH.
--- NOTE | 2016-08-16 19:20 | NUR ---
ENDORSED PT TO AZUL JERONIMO, FOR CONTINUITY OF CARE, PT STABLE AT THIS TIME.
--- NOTE | 2016-08-16 19:30 | NUR ---
RECEIVED PT IN STABLE CONDITION FROM KS NURSE. AWAKE,ALERT AND ORIENTED X4. BEDREST. TURN Q2 HRS. NOW A MED SURG PT. WITH EDEMA ON BOTH ARMS AND LEGS. HAS LT UPPER ARM PICC LINE ,DOUBLE LUMEN BOTH CLEAR AND PATENT. WITH INCONTINENT DERMATITIS ON PERINEAL AREA ND SACRUM. BUT OTHER GRACIA SKIN IS INTACT. STILL WITH LOOSE BM BUT NO BLEEDING NOTED. BED ON LOW POSITION, SIDE RAILS UP X2. CALL LIGHT PLACED WITHIN EASY REACH. WILL CONTINUE TO MONITOR.
[2016-08-16] MEDS: CIPROFLOXACIN 250 MG TAB PO SCH (21:02)
--- NOTE | 2016-08-16 21:02 | NUR ---
PT TOOK ALL NIGHT MEDS. TOLERATED WELL.
[2016-08-16] MEDS: AMITRIPTYLINE 10 MG TAB PO SCH (21:03)
--- NOTE | 2016-08-16 22:00 | NUR ---
PT HAD LIQUID BM X2 ALREADY. CLEANSED AND KEPT DRY . REPOSITIONED FOR COMFORT.
[2016-08-16 23:30] VITALS: BP 111/76
--- NOTE | 2016-08-17 00:30 | NUR ---
HAD ANOTHER LOOSE BM. CLEANED AND KEPT DRY. APPLIED Z GUARD TO PERINEAL AREA
[2016-08-17] MEDS: HYDRAGUARD CREAM TP SCH ×2 (01:36→13:00)
[2016-08-17] MEDS: MILD SOAP AND WATER TP SCH ×2 (01:36→13:00)
--- NOTE | 2016-08-17 02:00 | NUR ---
SLEEPING AT THIS TIME. NO S/ S OF ANY DISCOMFORT NOR PAIN NOTED.
--- NOTE | 2016-08-17 04:00 | NUR ---
HAD A NOTHER LOOSE BM IN MODERATE AMOUNT. NO BLEEDING NOTED.HAS BEEN REPOSITIONED FOR COMFORT.
--- NOTE | 2016-08-17 06:00 | NUR ---
SLEEPING AT THIS TIME. NO S/S OF ANY DISTRESS NOTED. WILL CONTINUE TO MONITOR.
--- NOTE | 2016-08-17 07:09 | NUR ---
ENDORSED PT IN STABLE CONDITION TO AM NURSE.
--- NOTE | 2016-08-17 07:10 | NUR ---
RECEIVED PT REPORT AT BEDSIDE FROM NIGHT NURSE. PT IS AAOX4 AND SHOWS NO S/S OF DISTRESS ON ROOM AIR. PT HAS NOTED EDEMA ON THE L ARM. NOTED IV ON THE LEFT UPPER ARM AND PICC LINE ON THE LEFT UPPER ARM. PT HAS REDNESS IN PERINEAL AREA AND SACRUM THAT IS LAURIE. PT HAS HYDRAGUARD AT BEDSIDE. PT DENIES PAIN. PT BED IS LOWERED, FLAT, WITH CALL LIGHT WITHIN REACH.
[2016-08-17 08:00] VITALS: BP 112/71
[2016-08-17] MEDS ORDERED: PENICILLIN G BENZATHINE L-A 0.6 MU/ML SYR IM ONE (08:00)
--- NOTE | 2016-08-17 10:00 | NUR ---
ADMINISTERED SCHEDULED MEDICATIONS. PT TOLERATED WELL. PT NEEDS WERE MET AND HE HAS NO C/O AT THIS TIME. WILL CONTINUE TO MONITOR.
[2016-08-17] MEDS: FERROUS SULFATE 325 MG TABEC PO SCH ×3 (10:11→17:34)
[2016-08-17] MEDS: CIPROFLOXACIN 250 MG TAB PO SCH ×2 (10:11→21:02)
[2016-08-17] MEDS: MAGNESIUM OXIDE 400 MG TAB PO SCH ×2 (10:11→21:02)
[2016-08-17] MEDS: FUROSEMIDE 40 MG TAB PO SCH (10:11)
[2016-08-17] MEDS: SPIRONOLACTONE 50 MG TAB PO SCH (10:12)
[2016-08-17] MEDS: FOLIC ACID 1 MG TAB PO SCH (10:12)
[2016-08-17] MEDS: PANTOPRAZOLE 40 MG INJ VIAL IVP SCH (10:13)
[2016-08-17] MEDS: MULTIVITAMIN 1 TAB PO SCH (10:14)
[2016-08-17] MEDS: THIAMINE 100 MG TAB PO SCH (10:14)
--- NOTE | 2016-08-17 11:40 | NUR ---
PT IS AAOX4 AND COOPERATIVE WITH PHYSICAL THERAPY. PT HAS NO S/S OF DISTRESS NOTED.
--- NOTE | 2016-08-17 13:15 | NUR ---
ADMINISTERED SCHEDULED MEDICATIONS. PT TOLERATED WELL. PT BED IS LOW, FLAT, WITH CALL LIGHT WITHIN REACH.
--- NOTE | 2016-08-17 14:05 | NUR ---
PT IN BED SLEEPING. PT SHOWS NO S/S OF DISTRESS ON ROOM AIR.
--- NOTE | 2016-08-17 14:41 | NUR ---
PHYSICAL THERAPY CO-SIGN The Physical Therapy Progress Notes documented by Hvac Technician Residential have been reviewed. I CONCUR W/ORE FEEDER NOTE; CONT PER TX PLAN Reviewed/Co-Signed by: Cristina Lino Documentation Done by: PAVEL MCGUIRE ORE FEEDER Addendum: 08/17/16 at 1441 by Cristina Lino PT Amended: Links added.
--- NOTE | 2016-08-17 15:17 | NUR ---
FAXED CONCURRENT REVIEW TO [facility] [phone] PHONE JES,[phone] CALLED [facility] AND SPOKE WITH ROCCO, NO BED CALLED [facility] AND SPOKE WITH RENE,. SHE ASKED ME TO REFAX INFORMATION TO HER CALLED [facility] AND SPOKE WITH JACOB. SHE ASKED ME TO REFAX INFORMATION TO HER.
--- NOTE | 2016-08-17 15:44 | NUR ---
WENT TO SPEAK WITH MR SALAS ABOUT SNF. PATIENT SLEEPING I ASKED HIS NURSE, SAMI, TO SPEAK WITH HIM WHEN HE WAKES UP. Addendum: 08/17/16 at 1547 by Kathy Barreto CM ALSO PUT A CALL INTO DR. MANRIQUEZ TO FIND OUT IF HE SPOKE WITH THE PATIENT ABOUT A SNF
[2016-08-17 16:00] VITALS: BP 137/70
--- NOTE | 2016-08-17 16:00 | NUR ---
PT HAD A LOSE BM. PT SACRUM AND JORDAN AREA IS REDDENED. APPLIED HYDRAGAURD ORDERED. PT WAS GIVEN PERINEAL CARE, CHANGED LINENS, AND GOWN. PT TOLERATED ACTIVITY WELL. PT IS IN BED NOW REPOSITIONED AND SHOWS NO S/S OF DISTRESS NOTED ON ROOM AIR. PT DENIES PAIN.
--- NOTE | 2016-08-17 16:22 | NUR ---
08/17/16 RD INITIAL ASSESSMENT COMPLETED PLEASE REFER TO NUTRITION ASSESSMENT UNDER CARE ACTIVITY FOR ESTIMATED NUTRITIONAL NEEDS. 1. CONTINUE REGULAR DIET 2. RD TO FOLLOW-UP 3-5 DAYS; MODERATE RISK GRACE ECHEVERRIA RD
--- NOTE | 2016-08-17 16:30 | NUR ---
CALLED AND LEFT A MESSAGE FOR CASE MANAGEMENT REGARDING PT AGREEING TO BEING TRANSFERRED TO A NURSING FACILITY PER DR. SALAZAR ORDERS.
--- NOTE | 2016-08-17 18:10 | NUR ---
PT IN BED SLEEPING AND SHOWS NO S/S OF DISTRESS ON ROOM AIR.
--- NOTE | 2016-08-17 19:15 | NUR ---
GAVE REPORT TO NIGHT NURSE. PT ENDORSED IN STABLE CONDITION
--- NOTE | 2016-08-17 20:00 | NUR ---
RECEIVED ALERT,ORIENTED. VERBALLY RESPONSIVE. NOT IN ACUTE DISTRESS. NO PAIN OR DISCOMFORT NOTED. WITHH PICC LINE TO THE LEFT UPPER ARM AND HEPLOCK TO THE LEFT SHOULDER INTACT. SCD'S AT BEDSIDE. BUT PT REFUSED TO PUT THEM ON. VS STABLE, WILL CONTINUE TO MONITOR. NEEDS ATTENDED.
[2016-08-17] MEDS: AMITRIPTYLINE 10 MG TAB PO SCH (21:01)
--- NOTE | 2016-08-17 21:02 | NUR ---
DUE MEDICATIONS GIVEN SCHEDULED.
[2016-08-18] VITALS: BP 114/71
--- NOTE | 2016-08-18 | NUR ---
AWAKE,NOT IN ANY KIND OF DISTRESS. NO PAIN OR DISCOMFORT NOTED. SIDE RAILS UP,CALL LIGHT WITHIN REACH. KEPT WARM AND COMFORTABLE. VS REMAIN STABLE.
[2016-08-18] MEDS: HYDRAGUARD CREAM TP SCH ×2 (01:24→13:22)
[2016-08-18] MEDS: MILD SOAP AND WATER TP SCH ×2 (01:25→13:22)
--- NOTE | 2016-08-18 04:00 | NUR ---
ASLEEP,NOT IN ANY KIND OF DISTRESS. NO PAIN OR DISCOMFORT NOTED. NO SIGNIFICANT CHANGE IN CONDITION. WILL CONTINUE TO MONITOR.
--- NOTE | 2016-08-18 07:05 | NUR ---
ENDORSED CARE TO SAMI LIANG.
--- NOTE | 2016-08-18 07:05 | NUR ---
RECEIVED PT REPORT AT BEDSIDE FROM NIGHT NURSE. PT IS SLEEPING AND SHOWS NO S/S OF DISTRESS ON ROOM AIR. NOTED EDEMA ON THE LEFT ARM. I ELEVATED PT ARM WITH A PILLOW. NOTED PICC LINE ON THE LEFT UPPER ARM AND IV ON THE LEFT UPPER ARM ALSO. IV'S ARE PATENT AND INTACT. PT LEGS ARE EDEMATOUS. PT BED IS LOWERED WITH CALL LIGHT WITHIN REACH.
--- NOTE | 2016-08-18 07:45 | NUR ---
PT IS BED STATED HE NEEDED HIS LINENS TO BE CLEANED. PT HAS A SMALL LOSE BM. PT WAS GIVEN PERINEAL CARE AND LINENS CHANGED. PT TOLERATED ACTIVITY WELL. PT SHOWS NO S/S OF DISTRESS NOTED ON ROOM AIR.
[2016-08-18 08:00] VITALS: BP 122/72
--- NOTE | 2016-08-18 08:02 | NUR ---
RECEIVED A CALL FROM VIVIAN ANDERSON, UNABLE TO TAKE THIS PATIENT. SPOKE WITH PATIENT AND HE IS AGREEING TO GO SNF FOR REHAB, THEN HE WANTS TO GO HOME. I CALLED RENE FROM [facility] AND INFORMED HER. SHE WILL CALL ME BACK.
[2016-08-18] MEDS ORDERED: SPIRONOLACTONE 50 MG TAB PO SCH (09:00)
[2016-08-18] MEDS: FUROSEMIDE 40 MG TAB PO SCH (09:11)
[2016-08-18] MEDS: FERROUS SULFATE 325 MG TABEC PO SCH ×2 (09:11→13:22)
[2016-08-18] MEDS: MULTIVITAMIN 1 TAB PO SCH (09:11)
[2016-08-18] MEDS: FOLIC ACID 1 MG TAB PO SCH (09:11)
[2016-08-18] MEDS: CIPROFLOXACIN 250 MG TAB PO SCH (09:12)
[2016-08-18] MEDS: PANTOPRAZOLE 40 MG INJ VIAL IVP SCH (09:12)
[2016-08-18] MEDS: MAGNESIUM OXIDE 400 MG TAB PO SCH (09:12)
[2016-08-18] MEDS: THIAMINE 100 MG TAB PO SCH (09:12)
--- NOTE | 2016-08-18 09:15 | NUR ---
ADMINISTERED SCHEDULED MEDICATIONS. PT TOLERATED WELL. PT SHOWS NO S/S OF DISTRESS ON ROOM AIR.
--- NOTE | 2016-08-18 09:19 | NUR ---
ADMINISTERED SCHEDULED MEDICATIONS. PT TOLERATED WELL. PT RESTING CALMLY IN BED AND SHOWS NO S/S OF DISTRESS ON ROOM AIR.
--- NOTE | 2016-08-18 10:39 | NUR ---
CALLED [facility] AND SET UP [facility]ORT FOR 1:30P.Amber PRITCHARD RN CHARGE NURSE AWARE
--- NOTE | 2016-08-18 11:00 | NUR ---
PT IN BED RESTING AND SHOWS NO SIGN AND S/S OF DISTRESS. WILL CONTINUE TO MONITOR.
--- NOTE | 2016-08-18 12:00 | NUR ---
PT EATING LUNCH WELL. PT TOLERATED FOOD INTAKE.
--- NOTE | 2016-08-18 13:15 | NUR ---
GAVE PT REPORT TO [facility] NURSE JEWEL.
[2016-08-18] MEDS ORDERED: ONDA4ODT1 PO ×2 (13:18→13:19)
--- NOTE | 2016-08-18 14:00 | NUR ---
TRANSPORT ARRIVED ON UNIT. PT HAS BEEN DISCHARGED. ALL DISCHARGE INSTRUCTIONS AND PRESCRIPTIONS GIVEN. ALL BELONGINGS IN PT POSSESSION.PT VERBALIZED UNDERSTANDING OF DISCHARGE INSTRUCTIONS. IV AND PICC LINE WERE DISCONTINUED WITH CANNULA INTACT. WRISTBANDS REMOVED. PT WAS DRESSED IN ORANGE GOWN AND GIVEN ORANGE BLANKET. PT IS AAOX4 AND VERBALIZES UNDERSTANDING OF TRANSFER TO SNF. TRANSPORTER WHEELED PT OFF UNIT IN STABLE CONDITION.
--- NOTE | 2016-08-18 15:02 | NUR ---
ORAL REVIEW GIVEN TO EJS FROM [facility] [phone]
[2016-08-19] MEDS ORDERED: PANTOPRAZOLE 40 MG TABEC PO SCH (06:30)
[2016-08-19] MEDS ORDERED: FUROSEMIDE 20 MG TAB PO SCH (09:00)
== END 2016-08-18 14:00 | DRG 254 ==
LOC: MED 13:39 → MTU 16:00
PROVIDERS: ADMIT Hospitalist; ATTEND Hospitalist
PROC: 0DB58ZX Excision of Esophagus, Via Natural or Artificial Opening Endoscopic, Diagnostic (ICD-10-PCS; principal; 2016-08-12)
PROC: 0DB68ZX Excision of Stomach, Via Natural or Artificial Opening Endoscopic, Diagnostic (ICD-10-PCS; 2016-08-12)
DX: K92.1 Melena (principal); K74.60 Unspecified cirrhosis of liver; E46 Unspecified protein-calorie malnutrition; D62 Acute posthemorrhagic anemia; K22.10 Ulcer of esophagus without bleeding; N39.0 Urinary tract infection, site not specified; K29.20 Alcoholic gastritis without bleeding; F10.10 Alcohol abuse, uncomplicated; I10 Essential (primary) hypertension; D50.9 Iron deficiency anemia, unspecified; F17.210 Nicotine dependence, cigarettes, uncomplicated; E87.6 Hypokalemia; Z68.31 Body mass index [BMI] 31.0-31.9, adult
CPT/HCPCS: 36415; 71010; 76700; 80048; 80053; 82140; 82550; 82553; 83540; 83735; 84484; 85018; 85025; 85610; 85730; 86677; 86886; 86900; 86901; 87040; 87081; 93005; 96361; 96365; 96366; 96375; 97110; 97116; 97140; 97530; 99285; C1751; C9113; J0561; J0696; J1200; J1940; J2250; J2270; J2354; J2405; J3010; J7030; J7060; P9046; Q0092